=== PATIENT | male | born 1960 | race Caucasian/White ===

== ENCOUNTER 2019-10-24 09:27 | Emergency (ER) | payer BC ==
[~2019-10-24] VITALS: Ht 170.2 cm; Wt 103.1 kg
[2019-10-24] MEDS ORDERED: SODIUM CHLORIDE 0.9% 1000ML 1,000 ML IV STA (09:42)
[2019-10-24] MEDS ORDERED: KETOROLAC TROMETHAMINE 30 MG/ML VIAL IV ONE (09:45)
[2019-10-24] MEDS ORDERED: FAMOTIDINE 20 MG/2 ML VIAL IV ONE (09:45)
[2019-10-24] MEDS ORDERED: ONDANSETRON HCL INJ 2MG/ML 2ML 2 MG/ML VIAL IV ONE (09:45)
[2019-10-24] MEDS ORDERED: SODIUM CHLORIDE 0.9% 1000ML 1,000 ML ONE (09:53)
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
--- NOTE | 2019-10-24 10:22 | Diagnostic Imaging Report ---
EXAM: CT Abdomen and Pelvis WITHOUT intravenous contrast INDICATION: Right flank pain COMPARISON: None. TECHNIQUE: Abdomen and pelvis were scanned utilizing a multidetector helical scanner from the lung base to the pubic symphysis without administration of IV contrast. Coronal and sagittal reformations were obtained. IV CONTRAST: None ORAL CONTRAST: None COMPLICATIONS: None RADIATION DOSE: Total DLP: 742 mGy*cm Dose modulation, iterative reconstruction, and/or weight based adjustment of the mA/kV was utilized to reduce the radiation dose to as low as reasonably achievable. FINDINGS: LOWER THORAX: Normal. HEPATOBILIARY: No focal hepatic lesions. No biliary ductal dilatation. The gallbladder appears unremarkable. SPLEEN: No splenomegaly. PANCREAS: No focal masses or ductal dilatation. ADRENALS: No adrenal nodules. KIDNEYS/URETERS: 4 mm right ureterovesical junction calculus with associated mild right hydroureteronephrosis and perinephric and periureteral fat stranding. Additional 3 and 4 mm calculi at the right upper and lower pole. 3 mm nonobstructive left mid and lower pole calculi. PELVIC ORGANS/BLADDER: Unremarkable. PERITONEUM / RETROPERITONEUM: No free air or fluid. LYMPH NODES: No lymphadenopathy. VESSELS: Mild scattered atherosclerotic calcifications of the nonaneurysmal abdominal aorta and major branches. GI TRACT: No abnormal bowel thickening. No bowel obstruction. Normal appendix. BONES AND SOFT TISSUES: No acute osseous injury. No suspicious lytic or blastic lesions. Mild degenerative changes of the visualized spine. Minimal retrolisthesis at L1-2, L2-3 and L3-4. IMPRESSION: 4 mm obstructive right ureterovesical junction calculus with associated mild right hydroureteronephrosis and perinephric and periureteral fat stranding which can be seen in the setting of of upper urinary tract infection. Additional 3-4mm bilateral renal calculi. No left hydronephrosis or hydroureter. Signed by: Mickie Milligan MD on 10/24/2019 10:19 AM
[2019-10-24 11:14] VITALS: BP 156/79
--- OUTSIDE RECORDS SUMMARY | 2019-10-24 11:39 | XMS REPORT | Continuity of Care Document ---
Author Author [facility] Organization [facility] Address [address] [place] [address] [place] [id number] Phone Unavailable Care Team Providers Care Oven Heater Helper Name Role Phone Imelda REINOSO Attphys Unavailable Problems This patient has no known problems. Allergies, Adverse Reactions, Alerts This patient has no known allergies or adverse reactions. Medications This patient has no known medications. Procedures This patient has no known procedures. Results Test Description Test Time Test Comments Results Result Comments Source CT ABD/PEL WO CONTRAST-HOPD 2019-10-24 10:13:00 [place] [id number] Patient Name: HEDY MCCLURE MR #: [id number] : 1960 Age/Sex: 59/M Req #: [id number] Adm Physician: Ordered by: KEEGAN REINOSO MD Report #: [id number] Location: [facility] Room/Bed: Procedure: [id number] HOPD/CT ABD/PEL WO CONTRAST-HOPD Exam Date: 10/24/19 Exam Time: 1009 REPORT STATUS: Signed EXAM: CT Abdomen and Pelvis WITHOUT intravenous contrast INDICATION: Right flank pain COMPARISON: None. TECHNIQUE: Abdomen and pelvis were scanned utilizing a multidetector helical scanner from the lung base to the pubic symphysis witho ut administration of IV contrast. Coronal and sagittal reformations were obtained. IV CONTRAST: None ORAL CONTRAST: None COMPLICATIONS: None RADIATION DOSE: Total DLP: 742 mGy*cm Dose modulation, iterative reconstruction, and/or weight based adjustment of the mA/kV was utilized to reduce the radiation dose to as low as reasonably achievable. FINDINGS: LOWER THORAX: Normal. HEPATOBILIARY: No focal hepatic lesions. No biliary ductal dilatation. The gallbladder appears unremarkable. SPLEEN: No splenomegaly. PANCREAS: No focal masses or ductal dilatation. ADRENALS: No adrenal nodules. KIDNEYS/URETERS: 4 mm right ureterovesical junction calculus with associated mild right hydroureteronephrosis and perinephric and periureteral fat stranding. Additional 3 and 4 mm calculi at the right upper and lower pole. 3 mm nonobstructive left mid and lower pole calculi. PELVIC ORGANS/BLADDER: Unremarkable. PERITONEUM / RETROPERITONEUM: No free air or fluid. LYMPH NODES: No lymphadenopathy. VESSELS: Mild scattered atherosclerotic calcifications of the nonaneurysmal abdominal aorta and major branches. GI TRACT: No abnormal bowel thickening. No bowel obstruction. Normal appendix. BONES AND SOFT TISSUES: No acute osseous injury. No suspicious lytic or blastic lesions. Mild degenerative changes of the visualized spine. Minimal retrolisthesis at L1-2, L2-3 and L3-4. IMPRESSION: 4 mm obstructive right ureterovesical junction calculus with associated mild right hydroureteronephrosis and perinephric and periureteral fat stranding which can be seen in the setting of of upper urinary tract infection. Additional 3-4mm bilateral renal calculi. No left hydronephrosis or hydroureter. Signed by: Amalia Casanova MD on 10/24/2019 10:19 AM Dictated By: AMALIA CASANOVA MD [id number] Transcribed By: NICHELLE on 10/24/19 1019 COPY TO: KEEGAN REINOSO MD
== END 2019-10-24 11:37 | disposition home or self-care (01) ==
LOC: FSED 09:41
DX: N20.2 Calculus of kidney with calculus of ureter (principal); N13.4 Hydroureter; R31.9 Hematuria, unspecified
CPT/HCPCS: 74176; 80053; 81003; 85025; 96374; 96375; 99284; J1885; J2405; J7030